=== PATIENT | female | born 1970 | race Caucasian/White ===

== ENCOUNTER 2025-08-29 15:30 | Inpatient (IN) | payer BC, OTHER ==
[~2025-08-29] VITALS: Ht 177.8 cm; Wt 108.9 kg
[2025-08-29 15:35] VITALS: O2SAT 100
[2025-08-29 17:00] LABS: BASOPHILS % 0.1 % (0.0-2.0); EOSINOPHILS % 0.1 % (0.0-5.0); HEMATOCRIT. 38.8 % (36.0-48.0); HEMOGLOBIN. 12.3 g/dL (12.0-16.0); LYMPHOCYTES % 10.7 % (20.0-50.0); MEAN PLATELET VOLUME 7.9 fl (7.4-10.4); MONOCYTES % 6.2 % (2.0-8.0); NEUTROPHILS % 82.9 % (40.0-76.0); PLATELET 288 x1000/uL (130-400); RED BLOOD CELL COUNT 4.74 mill/uL (4.2-5.4); RED CELL DISTRIBUTION WIDTH 15.3 % (11.6-14.6)
[2025-08-29 17:13] LABS: CREATININE 0.8 mg/dL (0.6-1.0); UREA NITROGEN BLOOD 10 mg/dL (9-23)
[2025-08-29 17:14] LABS: ETHANOL BLOOD < 10 mg/dL (<10)
[2025-08-29 17:15] LABS: ASPARTATE AMINOTRANSFERASE 377 IU/L (<34); BILIRUBIN DIRECT 0.4 mg/dL (<=3.0); BILIRUBIN TOTAL 1.1 mg/dL (0.1-1.0); PROTEIN TOTAL 7.2 g/dL (6.0-8.3)
[2025-08-29 18:49] LABS: CLARITY URINE CLEAR (CLEAR); COLOR URINE DARK YELLOW (YELLOW); GLUCOSE URINE NEGATIVE (NEGATIVE); KETONES URINE NEGATIVE (NEGATIVE); LEUKOCYTE ESTERASE URINE NEGATIVE (NEGATIVE); NITRITE URINE NEGATIVE (NEGATIVE); OCCULT BLOOD URINE NEGATIVE (NEGATIVE); PH URINE 6.5 (4.5-8.0); PROTEIN URINE NEGATIVE (NEGATIVE); SPECIFIC GRAVITY URINE 1.021 (1.005-1.030); UROBILINOGEN URINE 2.0 E.U./dL (0.2-1.0)
[2025-08-29 19:02] LABS: *AMPHETAMINES SCREEN URINE NEGATIVE (NEGATIVE); *BARBITURATES SCREEN URINE NEGATIVE (NEGATIVE); *BENZODIAZEPINES SCREEN URINE NEGATIVE (NEGATIVE); *COCAINE SCREEN URINE NEGATIVE (NEGATIVE); CANNABINOID URINE SCREEN NEGATIVE (NEGATIVE); ECSTASY MDMA SCREEN URINE NEGATIVE (NEGATIVE); METHADONE URINE SCREEN NEGATIVE (NEGATIVE); OPIATES URINE SCREEN NEGATIVE (NEGATIVE); PHENCYCLIDINE URINE SCREEN NEGATIVE (NEGATIVE)
[2025-08-29 19:06] LABS: BACTERIA URINE 1+; RBC URINE 0-2 /hpf (0-2); SQUAMOUS EPITHELIAL CELL URINE FEW /lpf (RARE/1+); WBC URINE 0-2 /hpf (0-2)
[2025-08-29] MEDS: VISCOUS LIDOCAINE 2% 15 ML UDC MM ONE (19:14)
[2025-08-29] MEDS: FAMOTIDINE 20MG TABLET PO ONE (19:15)
[2025-08-29] MEDS: ONDANSETRON 4MG ODT PO ONE (19:15)
[2025-08-29] MEDS: MAGNESIUM/ALUMINUM HYDROXIDE/SIMETHICONE 30ML UDC PO ONE (19:15)
[2025-08-29 20:55] LABS: HCG SCREEN NEGATIVE
[2025-08-29] MEDS ORDERED: MORPHINE SULFATE 4 MG/ML INJ (FOR IV/IM USE) IV ONE (22:15)
[2025-08-29] MEDS ORDERED: GUAIFENESIN 200MG/10ML SUGAR FREE UDC PO PRN (23:45)
[2025-08-29] MEDS ORDERED: DOCUSATE SODIUM 100MG CAPSULE PO PRN (23:45)
[2025-08-29] MEDS ORDERED: ACETAMINOPHEN 650MG/20.3ML UDC GT PRN (23:45)
[2025-08-29] MEDS ORDERED: ONDANSETRON HCL 4MG/2ML INJ IV PRN (23:45)
[2025-08-29] MEDS ORDERED: MAGNESIUM/ALUMINUM HYDROXIDE/SIMETHICONE 30ML UDC PO PRN (23:45)
[2025-08-29] MEDS ORDERED: ACETAMINOPHEN 650MG SUPP PR PRN (23:45)
[2025-08-30] MEDS: ONDANSETRON HCL 4MG/2ML INJ IV ONE (00:03)
[2025-08-30] MEDS: SODIUM CHLORIDE 0.9% 1,000 ML IV ONE (00:04)
[2025-08-30] MEDS: MORPHINE SULFATE 4 MG/ML INJ (FOR IV/IM USE) IV NR (00:07)
[2025-08-30 00:58] VITALS: BP 111/63; PULSE 72; RESP 16; TEMP 36.6404
[2025-08-30] MEDS ORDERED: SEMA0.258 (01:34)
[2025-08-30] MEDS ORDERED: SPIR100T5 MT (01:34)
[2025-08-30] MEDS: CEFTRIAXONE 2GM/50ML 50 ML IV SCH (02:03)
[2025-08-30] MEDS: DEXT 5%/0.9% NACL 1,000 ML IV SCH (02:04)
[2025-08-30] MEDS: METRONIDAZOLE 500 MG PREMIX 100 ML IV SCH (02:46)
[2025-08-30 04:00] VITALS: BP 105/51; PULSE 61; RESP 17; TEMP 36.3; O2SAT 98
[2025-08-30 07:47] LABS: BASOPHILS % 0.2 % (0.0-2.0); EOSINOPHILS % 1.8 % (0.0-5.0); HEMATOCRIT. 35.1 % (36.0-48.0); HEMOGLOBIN. 11.2 g/dL (12.0-16.0); LYMPHOCYTES % 23.0 % (20.0-50.0); MEAN PLATELET VOLUME 7.8 fl (7.4-10.4); MONOCYTES % 9.2 % (2.0-8.0); NEUTROPHILS % 65.8 % (40.0-76.0); PLATELET 262 x1000/uL (130-400); RED BLOOD CELL COUNT 4.33 mill/uL (4.2-5.4); RED CELL DISTRIBUTION WIDTH 14.7 % (11.6-14.6)
[2025-08-30 08:00] VITALS: BP 102/63; PULSE 65; RESP 19; TEMP 36.4; O2SAT 97
[2025-08-30 08:03] LABS: CREATININE 0.7 mg/dL (0.6-1.0); UREA NITROGEN BLOOD 7 mg/dL (9-23)
[2025-08-30 09:34] LABS: TROPONIN I HIGH SENSITIVITY < 4 ng/L (3.0-34)
[2025-08-30 12:00] VITALS: BP 100/60; PULSE 64; RESP 18; TEMP 36.4; O2SAT 98
[2025-08-30 16:00] VITALS: BP 114/64; PULSE 68; RESP 18; TEMP 36.5; O2SAT 100
[2025-08-30] MEDS ORDERED: KETOROLAC 15MG/ML VIAL IV PRN (17:15)
[2025-08-30 22:08] LABS: VITAMIN B12 SERUM 414 pg/mL (211-911)
[2025-08-30 22:09] LABS: FOLIC ACID (FOLATE) SERUM 12.05 ng/mL (>5.38)
[2025-08-30 22:38] LABS: HEPATITIS A AB IGM NEGATIVE (Negative); HEPATITIS B CORE AB IGM NEGATIVE (Negative)
[2025-08-30 22:40] LABS: HEPATITIS C AB NON REACTIVE (Neg) (Negative)
[2025-08-31 08:02] VITALS: BP 100/54; PULSE 64; RESP 18; TEMP 36.7; O2SAT 98
[2025-08-31 09:45] LABS: BASOPHILS % 0.6 % (0.0-2.0); EOSINOPHILS % 2.5 % (0.0-5.0); HEMATOCRIT. 36.0 % (36.0-48.0); HEMOGLOBIN. 11.3 g/dL (12.0-16.0); LYMPHOCYTES % 28.4 % (20.0-50.0); MEAN PLATELET VOLUME 8.0 fl (7.4-10.4); MONOCYTES % 11.9 % (2.0-8.0); NEUTROPHILS % 56.6 % (40.0-76.0); PLATELET 263 x1000/uL (130-400); RED BLOOD CELL COUNT 4.42 mill/uL (4.2-5.4); RED CELL DISTRIBUTION WIDTH 15.1 % (11.6-14.6)
[2025-08-31 10:18] LABS: CREATININE 0.7 mg/dL (0.6-1.0); UREA NITROGEN BLOOD 7 mg/dL (9-23)
[2025-08-31 10:20] LABS: ASPARTATE AMINOTRANSFERASE 42 IU/L (<34); BILIRUBIN DIRECT 0.3 mg/dL (<=3.0); BILIRUBIN TOTAL 0.8 mg/dL (0.1-1.0); PHOSPHORUS 2.7 mg/dL (2.5-4.9); PROTEIN TOTAL 6.0 g/dL (6.0-8.3)
[2025-08-31] MEDS ORDERED: PANT20TA17 PO (11:08)
[2025-08-31] MEDS ORDERED: IBUP-1455 PO (11:08)
[2025-08-31 12:06] VITALS: BP 102/51; PULSE 67; RESP 17; TEMP 97.8
== END 2025-08-31 14:20 | disposition home or self-care (01) | DRG 446 ==
LOC: ER 15:30 → 6EST 22:56 → EDBEDREQ 23:12 → EDBEDREQTM 23:12 → ENRESERV 23:41
PROVIDERS: ADMIT Internal Medicine; ATTEND Internal Medicine
DX: K80.20 Calculus of gallbladder without cholecystitis without obstruction (principal); D64.9 Anemia, unspecified; K76.9 Liver disease, unspecified; K82.8 Other specified diseases of gallbladder; Z98.84 Bariatric surgery status; Z86.718 Personal history of other venous thrombosis and embolism
CPT/HCPCS: 36415; 71045; 74176; 76700; 80048; 80076; 80305; 80320; 81003; 82607; 82728; 82746; 83540; 83550; 83735; 84100; 84484; 84703; 85025; 85044; 86705; 86709; 87340; 93005; 93970; 99285; J0696; J2270; J2405; J3490; J7030; J7042; Q0162; G0480